=== PATIENT | female | born 1940 | race Caucasian/White ===

== ENCOUNTER → 2020-06-20 09:34 | Outpatient (REF) | payer MEDICARE, OTHER, SELFPAY | LOC: ANHLAB 09:34 | PROVIDERS: Visit Provider Nurse Practitioner | DX: C44.01 Basal cell carcinoma of skin of lip (principal) | CPT/HCPCS: 88305; 88331 ==

== ENCOUNTER → 2020-10-31 08:58 | Outpatient (REF) | payer MEDICARE, OTHER, SELFPAY | LOC: ANHLAB 08:58 | PROVIDERS: Visit Provider Nurse Practitioner | DX: C44.729 Squamous cell carcinoma of skin of left lower limb, including hip (principal) | CPT/HCPCS: 88305; 88331 ==

== ENCOUNTER → 2021-07-24 10:02 | Outpatient (REF) | payer MEDICARE, OTHER, SELFPAY | LOC: ANHLAB 10:02 | PROVIDERS: PCP Physician Assistant; Visit Provider Nurse Practitioner | DX: C44.311 Basal cell carcinoma of skin of nose (principal) | CPT/HCPCS: 88305; 88331 ==